=== PATIENT | male | born 2000 | race Caucasian/White ===

== ENCOUNTER 2023-08-11 18:55 | Emergency (ER) | payer OTHER ==
--- NOTE | 2023-08-11 19:06 | ERPHSYRPT ---
- History of Present Illness Time Seen by Provider: 08/11/23 19:01 Historian: patient, family Exam Limitations: no limitations Physician History: pt is 2 weeks SP covid accompanied by CP also and had sharp CP today with tingling of hands. mild SOBreath. Nonsmoker, No hx ht dx except M as child. Hx GERD. Chest clear. Ht reg without M. Abd soft nontender without peritoneal signs of masses. No rash. No edema. ext nontender without swelling. Family Hx late cardiac dx only. No Hx hptn or CAD for pt. Heart score is 2 with minimal nonspec EKG findings. Normal mental status and neuro exam fundo benign. Family in room as independent confirming source for Hx. Discussed risks/benefits ASA, NTG, IV, EKG, Trops BNP, D dimer, CXR Lipase, Priscila, CBC, CMP with pt and family and they wish to proceed. These are ordered. Results discussed. Timing/Duration: day(s) Activities at Onset: none Quality: burning, sharpness, stabbing Location: substernal Chest Pain Radiation: no radiation Severity of Pain-Max: moderate Severity of Pain-Current: moderate Modifying Factors: Improves With: nothing Associated Symptoms: other (tingling hands resolved) Prior Chest Pain/Cardiac Workup: no prior chest pain Nitro Today/Relief: 0.4 mg x 1, provided by ED Aspirin Treatment Today: 81 mg x 4, provided by ED Allergies/Adverse Reactions: No Known Drug Allergies Allergy (Verified 08/11/23 19:10) Home Medications: Dicyclomine HCl 20 mg [Bentyl 20 mg] 10 mg PO UD PRN 08/11/23 [History] Famotidine 40 mg PO DAILY 08/11/23 [History] - Review of Systems Constitutional: No Fever, No Chills Eyes: No Symptoms Ears, Nose, & Throat: No Symptoms Respiratory: Cough, Dyspnea Cardiac: Chest Pain, No Edema, No Syncope Abdominal/Gastrointestinal: No Abdominal Pain, No Nausea, No Vomiting, No Diarrhea Genitourinary Symptoms: No Dysuria Musculoskeletal: No Back Pain, No Neck Pain Skin: No Symptoms, No Rash Neurological: Parasthesia, No Dizziness, No Focal Weakness, No Sensory Changes Psychological: No Symptoms Endocrine: No Symptoms Hematologic/Lymphatic: No Symptoms Immunological/Allergic: No Symptoms All Other Systems: Reviewed and Negative - Past Medical History Pertinent Past Medical History: Yes Respiratory History: Asthma - Nursing Vital Signs Nursing Vital Signs: Initial Vital Signs Temperature 99.1 F 08/11/23 19:01 Pulse Rate 77 08/11/23 19:01 Respiratory Rate 9 L 08/11/23 19:01 Blood Pressure 134/73 08/11/23 19:01 O2 Sat by Pulse Oximetry 100 08/11/23 19:01 Pain Scale Pain Intensity 0 - Physical Exam General Appearance: no apparent distress, alert Eye Exam: PERRL/EOMI, eyes nml inspection Ears, Nose, Throat Exam: normal ENT inspection, moist mucous membranes Neck Exam: normal inspection, non-tender, supple, full range of motion Respiratory Exam: normal breath sounds, lungs clear, No respiratory distress Cardiovascular Exam: regular rate/rhythm, normal heart sounds Gastrointestinal/Abdomen Exam: soft, No tenderness, No mass Rectal Exam: deferred Back Exam: normal inspection, No CVA tenderness, No vertebral tenderness Extremity Exam: normal inspection, normal range of motion Neurologic Exam: alert, oriented x 3, cooperative, normal mood/affect, sensation nml, No motor deficits Skin Exam: normal color, warm, dry SpO2 Interpretation: normal SpO2: 99 O2 Delivery: Room Air - Course Nursing assessment & vital signs reviewed: Yes EKG Interpreted by Me: Sinus Rhythm, NORMAL AXIS, NORMAL INTERVALS, NORMAL QRS, Non-specific ST Changes - Radiology Exams Chest X-ray Interpretation: Reviewed by me, Infiltrates (Hx Covid mild residual infiltrates) Ordered Tests: Active Orders 24 hr Category Date Time Status EKG-ER Only STAT Care 08/11/23 19:10 Active IV Insertion STAT Care 08/11/23 19:10 Active CHEST 1 VIEW (PORTABLE) Stat Exams 08/11/23 19:11 Completed AMYLASE Stat Lab 08/11/23 19:19 Completed CBC W DIFF Stat Lab 08/11/23 19:19 Completed CMP Stat Lab 08/11/23 19:19 Completed D-DIMER QUANTITATIVE Stat Lab 08/11/23 19:19 Completed LIPASE Stat Lab 08/11/23 19:19 Completed Lactic Acid Stat Lab 08/11/23 19:30 Completed NT PRO BNPII Stat Lab 08/11/23 19:19 Completed TROPONIN Q4H Lab 08/11/23 19:19 Completed TROPONIN Q4H Lab 08/11/23 22:30 Completed TROPONIN Q4H Lab 08/12/23 03:15 Ordered Medication Summary Discontinued Medications Generic Name Dose Route Start Last Admin Trade Name Jaylene PRN Reason Stop Dose Admin Aspirin 324 mg 08/11/23 19:10 08/11/23 19:30 Aspirin 81 Mg Tab.Chew PO 08/11/23 19:11 324 mg STAT ONE Administration Aspirin Confirm 08/11/23 19:24 Aspirin 81 Mg Tab.Chew Administered 08/11/23 19:25 Dose 324 mg .ROUTE .STK-MED ONE Famotidine 20 mg 08/11/23 19:10 08/11/23 19:32 Famotidine 20 Mg/1 Vial IV 08/11/23 19:11 20 mg STAT ONE Administration Famotidine Confirm 08/11/23 19:25 Famotidine 20 Mg/1 Vial Administered 08/11/23 19:26 Dose 20 mg IV .STK-MED ONE Sodium Chloride 1,000 mls @ 999 mls/hr 08/11/23 19:10 08/11/23 20:48 Sodium Chloride 0.9% 1000 Ml IV 08/11/23 20:10 Infused .Q1H1M STA Infusion Sodium Chloride Confirm 08/11/23 19:25 Sodium Chloride 0.9% 1000 Ml Administered 08/11/23 19:26 Dose 1,000 mls @ ud .ROUTE .STK-MED ONE Nitroglycerin 0.4 mg 08/11/23 19:10 08/11/23 21:18 Nitroglycerin 0.4 Mg (Ed) 0.4 Mg Tab.Subl SL 08/11/23 19:11 Not Given STAT ONE Nitroglycerin Confirm 08/11/23 19:24 Nitroglycerin 0.4 Mg (Ed) 0.4 Mg Tab.Subl Administered 08/11/23 19:25 Dose 0.4 mg SL .STK-MED ONE Ondansetron HCl 4 mg 08/11/23 19:10 08/11/23 19:31 Ondansetron Hcl 4 Mg/2 Ml Vial IV 08/11/23 19:11 4 mg STAT ONE Administration Ondansetron HCl Confirm 08/11/23 19:23 Ondansetron Hcl 4 Mg/2 Ml Vial Administered 08/11/23 19:24 Dose 4 mg .ROUTE .STK-MED ONE Lab/Rad Data: Laboratory Result Diagrams 08/11/23 19:19 08/11/23 19:19 Laboratory Results 08/11/23 08/11/23 08/11/23 Range/Units 22:30 19:30 19:19 WBC (4.0-10.5) x10^3/uL RBC (4.1-5.6) x10^6/uL Hgb (12.5-18.0) g/dL Hct (42-50) % MCV (78-100) fL MCH (26-32) pg MCHC (32-36) g/dL RDW (11.5-14.0) % Plt Count (150-450) x10^3/uL MPV (7.5-11.0) fL Gran % (36.0-66.0) % Immature Gran % (Auto) (0.00-0.4) % Nucleat RBC Rel Count (0.00-0.1) % Eos # (Auto) (0-0.5) x10^3/uL Immature Gran # (Auto) (0.00-0.03) x10^3u/L Absolute Lymphs (auto) (1.0-4.6) x10^3/uL Absolute Monos (auto) (0.0-1.3) x10^3/uL Absolute Nucleated RBC (0.00-0.01) x10^3u/L Lymphocytes % (24.0-44.0) % Monocytes % (0.0-12.0) % Eosinophils % (0.00-5.0) % Basophils % (0.0-0.4) % Absolute Granulocytes (1.4-6.9) x10^3/uL Basophils # (0-0.4) x10^3/uL D-Dimer (0.0-0.50) mg/L Sodium (135-145) mmol/L Potassium (3.5-5.1) mmol/L Chloride (98-107) mmol/L Carbon Dioxide (22-30) mmol/L Anion Gap (5-15) MEQ/L BUN (9-20) mg/dL Creatinine (0.66-1.25) mg/dL Estimated GFR ML/MIN Glucose (74-106) mg/dL Lactic Acid 1.5 (0.4-2.0) Calcium (8.4-10.2) mg/dL Total Bilirubin (0.2-1.3) mg/dL AST (17-59) U/L ALT (0-50) U/L Alkaline Phosphatase (38-126) U/L Troponin I < 0.012 < 0.012 (0.000-0.034) ng/mL NT-Pro-B Natriuret Pep < 20.0 (<300) pg/mL Serum Total Protein (6.3-8.2) g/dL Albumin (3.5-5.0) g/dL Amylase (30-110) U/L Lipase (23-300) U/L 08/11/23 08/11/23 08/11/23 Range/Units 19:19 19:19 19:19 WBC 7.0 (4.0-10.5) x10^3/uL RBC 5.60 (4.1-5.6) x10^6/uL Hgb 16.1 (12.5-18.0) g/dL Hct 47.9 (42-50) % MCV 85.5 (78-100) fL MCH 28.8 (26-32) pg MCHC 33.6 (32-36) g/dL RDW 13.0 (11.5-14.0) % Plt Count 208 (150-450) x10^3/uL MPV 10.9 (7.5-11.0) fL Gran % 47.1 (36.0-66.0) % Immature Gran % (Auto) 1.3 H (0.00-0.4) % Nucleat RBC Rel Count 0.0 (0.00-0.1) % Eos # (Auto) 0.18 (0-0.5) x10^3/uL Immature Gran # (Auto) 0.09 H (0.00-0.03) x10^3u/L Absolute Lymphs (auto) 2.68 (1.0-4.6) x10^3/uL Absolute Monos (auto) 0.67 (0.0-1.3) x10^3/uL Absolute Nucleated RBC 0.00 (0.00-0.01) x10^3u/L Lymphocytes % 38.5 (24.0-44.0) % Monocytes % 9.6 (0.0-12.0) % Eosinophils % 2.6 (0.00-5.0) % Basophils % 0.9 (0.0-0.4) % Absolute Granulocytes 3.29 (1.4-6.9) x10^3/uL Basophils # 0.06 (0-0.4) x10^3/uL D-Dimer 0.34 (0.0-0.50) mg/L Sodium 142 (135-145) mmol/L Potassium 3.8 (3.5-5.1) mmol/L Chloride 105 (98-107) mmol/L Carbon Dioxide 27 (22-30) mmol/L Anion Gap 14.0 (5-15) MEQ/L BUN 14 (9-20) mg/dL Creatinine 1.40 H (0.66-1.25) mg/dL Estimated GFR 72.4 ML/MIN Glucose 95 (74-106) mg/dL Lactic Acid (0.4-2.0) Calcium 9.6 (8.4-10.2) mg/dL Total Bilirubin 0.60 (0.2-1.3) mg/dL AST 34 (17-59) U/L ALT 33 (0-50) U/L Alkaline Phosphatase 94 (38-126) U/L Troponin I (0.000-0.034) ng/mL NT-Pro-B Natriuret Pep (<300) pg/mL Serum Total Protein 7.3 (6.3-8.2) g/dL Albumin 4.7 (3.5-5.0) g/dL Amylase 78 (30-110) U/L Lipase 164 (23-300) U/L - Progress Progress: improved, re-examined Air Movement: good Progress Note: 08/12/23 00:05 pt symptoms have improved/resolved. discussed risk strat and heart score with pt and spouse and that although low risk he still could have cardiac , neuro, or other Dx undetected and evolving and they voice understanding and prefer outpt f/u to any further eval in ER or admission at this time and have the capacity to make this choice. 08/12/23 00:07 08/12/23 00:1 Blood Culture(s) Obtained: No Antibiotics given: No Counseled pt/family regarding: lab results, diagnosis, need for follow-up, rad results Medical Desision Making - Independent Historian Additional History obtained from: Family - Discussion of managment Reviewed:: Test results, Need for additional workup Agreed on:: Treatment plan, need for follow-up - Diagnostic Testing Diagnostic test were ordered, analyzed, and reviewed by me: Yes Radiological Interpretation: Reviewed by me - Risk of complications The pt has a mod risk of morbidity or mortality based on: Need for prescription drug management The pt has a high risk of morbidity or mortality based on: Decision regarding hospitilization or escalation of hosp level of care - Departure Departure Disposition: Home Clinical Impression: chest pain - resolved Condition: Good Critical Care Time: No Referrals: ALEX BLANCHARD DO [Primary Care Provider] - Follow up/PCP as directed Instructions: Chest Pain (DC) Additional Instructions: although you are in the lower risk category, it is advised to still see your Dr. in follow-up to consider further cardiac or other testing even though there were , as discussed , some possible other explanations ( which we cannot yet confirm) . Return meantime if any further symptoms or concerns.
[2023-08-11 19:09] VITALS: TEMP 99.1
[2023-08-11] MEDS ORDERED: Zofran 4 MG/2 ML VIAL ONE (19:23)
[2023-08-11 19:24] LABS: Absolute Neutrophil Ct (ANC) 3.29 x10^3/uL (1.4-6.9); BASOPHIL % 0.9 % (0.0-0.4); Basophil (Absolute #) 0.06 x10^3/uL (0-0.4); Eosinophil % 2.6 % (0.00-5.0); Eosinophil (Absolute #) 0.18 x10^3/uL (0-0.5); Hematocrit 47.9 % (42-50); Hemoglobin 16.1 g/dL (12.5-18.0); IMMATURE GRAN # 0.09 x10^3u/L (0.00-0.03); IMMATURE GRAN % 1.3 % (0.00-0.4); Lymphocyte (Absolute #) 2.68 x10^3/uL (1.0-4.6); Lymphocytes % 38.5 % (24.0-44.0); Mean Cell Volume 85.5 fL (78-100); Mean Corpuscular Hemoglobin 28.8 pg (26-32); Mean Corpuscular Hgb Concent. 33.6 g/dL (32-36); Mean Platelet Volume 10.9 fL (7.5-11.0); Monocyte (Absolute #) 0.67 x10^3/uL (0.0-1.3); Monocytes % 9.6 % (0.0-12.0); Neutrophil % 47.1 % (36.0-66.0); Platelet Count 208 x10^3/uL (150-450)
[2023-08-11] MEDS ORDERED: BABY ASPIRIN 81 MG CHEW ONE (19:24)
[2023-08-11] MEDS ORDERED: Nitrostat 0.4 MG (ED) SL ONE (19:24)
[2023-08-11] MEDS ORDERED: Sodium Chloride 0.9% 1000 ML 1,000 ML ONE (19:25)
[2023-08-11] MEDS ORDERED: Pepcid 20 MG VIAL IV ONE (19:25)
[2023-08-11] MEDS: Sodium Chloride 0.9% 1000 ML 1,000 ML IV STA (19:29)
[2023-08-11] MEDS: BABY ASPIRIN 81 MG CHEW PO ONE (19:30)
[2023-08-11] MEDS: Zofran 4 MG/2 ML VIAL IV ONE (19:31)
--- NOTE | 2023-08-11 19:31 | XRAY ---
Indication: Chest pain. Comparison: None Portable apical lordotic chest demonstrates normal heart, lungs, and bony thorax.
[2023-08-11] MEDS: Pepcid 20 MG VIAL IV ONE (19:32)
[2023-08-11 20:16] LABS: ALBUMIN 4.7 g/dL (3.5-5.0); BILIRUBIN,TOTAL 0.6 mg/dL (0.2-1.3); Calcium 9.6 mg/dL (8.4-10.2); Creatinine 1 1.4 mg/dL (0.66-1.25); EST GLOMERULAR FILTRATION RATE 72.4 ML/MIN; Potassium 3.8 mmol/L (3.5-5.1); Total Protein 7.3 g/dL (6.3-8.2)
[2023-08-11 20:28] LABS: NT PRO BNPII < 20.0 pg/mL (<300); TROPONIN < 0.012 ng/mL (0.000-0.034)
[2023-08-11] MEDS: Nitrostat 0.4 MG (ED) SL ONE (21:18)
[2023-08-12 00:09] VITALS: BP 122/58; PULSE 72; RESP 14
[2023-08-12 00:11] VITALS: O2SAT 99
== END 2023-08-12 00:23 | disposition home or self-care (01) ==
LOC: ED 18:55
DX: R07.9 Chest pain, unspecified (principal); R20.2 Paresthesia of skin; R06.02 Shortness of breath; Z79.899 Other long term (current) drug therapy
CPT/HCPCS: 36000; 36415; 71045; 80053; 82150; 83605; 83690; 83880; 84484; 85025; 85379; 93005; 96360; 96374; 96375; 99284; J2405; A9270-GY

== ENCOUNTER 2024-07-16 11:22 | Day surgery (SDC) | payer OTHER ==
--- NOTE | 2024-07-14 13:51 | HP ---
HISTORY OF PRESENT ILLNESS: The patient is a 23-year-old male, presents with some headache. He had a cyst on his left mosque. It has been flared up and drained and spontaneously opened. He would like to have it removed. PAST MEDICAL HISTORY: Allergic rhinitis, IBS, ADHD, GERD. HOME MEDICATIONS: Multivitamin, loratadine, dicyclomine, Astepro Allergy. ALLERGIES: None. PAST SURGICAL HISTORY: None. SOCIAL HISTORY: None. FAMILY HISTORY: None. REVIEW OF SYSTEMS: CONSTITUTIONAL: Denies fever or chills. CHEST: Denies shortness of breath. CARDIOVASCULAR: Denies chest pain. ABDOMEN: Denies abdominal pain. PHYSICAL EXAMINATION: GENERAL: No acute distress. CARDIOVASCULAR: Regular rate and rhythm. RESPIRATORY: Nonlabored. No shortness of breath. ABDOMEN: Soft. SKIN: A 1 cm left temporal cyst. IMPRESSION: Left mosque cyst. PLAN: Excision of left mosque cyst with Dr. Neal Cooper. This report was dictated for Dr. Cooper by Aurelia Pinon NP.
[~2024-07-16 11:22] MED LIST: Sensorcaine 0.25% 10 ML ONE
[2024-07-16] MEDS: Lactated Ringers 500 ML IV SCH (11:36)
[2024-07-16] MEDS: CEFAZOLIN 2 GM/100 ML NaCl 2 GM/100 ML IVPB IV SCH (11:36)
[2024-07-16 11:52] VITALS: O2SAT 100
[2024-07-16] MEDS ORDERED: XYLOCAINE 1% HCL 20 ML MDV ONE (12:38)
[2024-07-16] MEDS ORDERED: Lactated Ringers 500 ML IV ONE (12:46)
[2024-07-16] MEDS ORDERED: Triple Antibiotic Ointment ONE (13:26)
[2024-07-16 13:45] VITALS: BP 134/72; PULSE 69; RESP 16; TEMP 98.2
--- NOTE | 2024-07-17 10:01 | OP ---
SURGERY DATE/TIME: 07/16/2024 [id number] PREOPERATIVE DIAGNOSIS: Patient had a fairly significant cystic lesion, left temporal area about 2 cm. Yesterday it was still present and still pretty good size. PROCEDURE: Excisions of left temporal cyst lesion. SURGEON: Neal Cooper M.D. DESCRIPTION OF PROCEDURE: Patient was taken to surgery. General anesthetic. Routine prep and drape; 1% lidocaine. An elliptical incision along the skin lines. The area was carved out. It was then closed surrounding these with 5-0 and 6-0. Good capillary refill was present. Patient tolerated the procedure satisfactorily.
== END 2024-07-16 13:46 | disposition home or self-care (01) ==
LOC: SDC 11:22
PROVIDERS: ATTEND Surgery
DX: G93.0 Cerebral cysts (principal)
CPT/HCPCS: J0690; A9270-GY